=== PATIENT | female | born 1985 | race Hispanic/Latino ===

== ENCOUNTER 2018-12-13 23:18 | Emergency (ER) | payer OTHER, SELFPAY ==
[2018-12-14 00:07] LABS: Urine Blood 2+ (NEG); Urine Glucose NEGATIVE (NEG); Urine Protein NEGATIVE (NEG); Urine pH 6.5 (5.0-7.0)
[2018-12-14 00:13] LABS: Absolute Lymphocytes (CBC) 3.2 K/uL (0.7-4.9); Basophils % 0.4 % (0-1.3); Lymphocytes % 25.4 % (15.3-44.8); RBC Red Blood Cell Count 4.36 M/uL (3.86-4.86)
[2018-12-14 00:30] LABS: Potassium 3.2 mmol/L (3.5-5.1)
--- NOTE | 2018-12-14 02:53 | ER ---
Nurse's Notes [facility] Name: Ayse Lacy Age: 33 yrs Sex: Female : 1985 Arrival Date: 12/13/2018 Time: 23:25 Bed 8 Private MD: Diagnosis: Incomplete spontaneous without complication Presentation: 12/13 23:36 Presenting complaint: Patient states: vaginal bleeding. pt stated she stopped her ak1 atorvastatin 20mg after finding out she was . 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 Transition of care: patient was not received from another setting of care. Onset of symptoms is unknown. Risk Assessment: Do you want to hurt yourself or someone else? Patient reports no desire to harm self or others. Initial Sepsis Screen: Does the patient meet any 2 criteria? No. Patient's initial sepsis screen is negative. Does the patient have a suspected source of infection? No. Patient's initial sepsis screen is negative. Care prior to arrival: None. 23:36 Acuity: CHANTAL 3 ak1 23:36 Method Of Arrival: Ambulatory ak1 Triage Assessment: 23:35 General: Appears in no apparent distress. Behavior is calm, cooperative. : Reports ak1 vaginal bleeding that is pt stated she stopped her Atorvastatin and hydroxizine once she found out she was . 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 - Social history:: Smoking status: Patient/guardian denies using tobacco. - Ebola Screening: : No symptoms or risks identified at this time. Screenin:37 Abuse screen: Denies threats or abuse. Denies injuries from another. Nutritional ak1 screening: No deficits noted. Tuberculosis screening: No symptoms or risk factors identified. Fall Risk None identified. Assessment: 23:40 General: Appears in no apparent distress. comfortable, Behavior is calm, cooperative, aa1 appropriate for age. Pain: Denies pain. Neuro: Level of Consciousness is awake, alert, obeys commands, Oriented to person, place, time, situation, Moves all extremities. Full function Gait is steady. Respiratory: Airway is patent Respiratory effort is even, unlabored, Respiratory pattern is regular, symmetrical. GI: No signs and/or symptoms were reported involving the gastrointestinal system. : Reports vaginal bleeding that is spotty. EENT: No signs and/or symptoms were reported regarding the EENT system. Derm: Skin is intact, is healthy with good turgor, Skin is pink, warm \T\ dry. Musculoskeletal: Circulation, motion, and sensation intact. Capillary refill < 3 seconds. 12/14 00:29 Reassessment: Patient appears in no apparent distress at this time. Patient and/or aa1 family updated on plan of care and expected duration. Pain level reassessed. Patient is alert, oriented x 3, equal unlabored respirations, skin warm/dry/pink. Awaiting lab results. 01:30 Reassessment: Patient appears in no apparent distress at this time. Patient and/or aa1 family updated on plan of care and expected duration. Pain level reassessed. Patient is alert, oriented x 3, equal unlabored respirations, skin warm/dry/pink. Awaiting u/s. 02:40 Reassessment: Patient appears in no apparent distress at this time. Patient and/or aa1 family updated on plan of care and expected duration. Pain level reassessed. Patient is alert, oriented x 3, equal unlabored respirations, skin warm/dry/pink. Pt back from u/s. Vital Signs: 12/13 23:33 BP 155 / 116; Pulse 95; Resp 18; Temp 97.5; Pulse Ox 100% on R/A; Weight 76.2 kg (R); ak1 Height 5 ft. 1 in. (154.94 cm) (R); 12/14 00:29 BP 149 / 103; Pulse 80; Resp 16; Pulse Ox 98% on R/A; aa1 01:01 BP 134 / 93; Pulse 83; Resp 18; Pulse Ox 98% on R/A; Pain 0/10; aa1 12/13 23:33 Body Mass Index 31.74 (76.20 kg, 154.94 cm) ak1 ED Course: 12/13 23:25 Patient arrived in ED. es 23:32 Laurie Schroeder FNP-C is [facility]. kb 23:32 Evaristo Thomas MD is Attending Physician. kb 23:33 Arm band placed on Patient placed in an exam room, on a stretcher, Patient notified of ak1 wait time. 23:37 Triage completed. ak1 23:40 Patient has correct armband on for positive identification. Bed in low position. Call aa1 light in reach. Pulse ox on. NIBP on. 23:49 Raina Montes, RN is Primary Nurse. aa1 12/14 02:51 US Transvaginal Ob In Process Unspecified. EDMS 03:02 No provider procedures requiring assistance completed. IV discontinued, intact, ak1 bleeding controlled, No redness/swelling at site. Pressure dressing applied, 20g IV removed from right AC that was placed prior to this nurse taking over care. Administered Medications: No medications were administered Outcome: 02:52 Discharge ordered by MD. kb 03:03 Discharged to home ambulatory, with family. ak1 03:03 Condition: stable 03:03 Discharge instructions given to patient, Instructed on discharge instructions, follow up and referral plans. Demonstrated understanding of instructions, follow-up care. 03:16 Patient left the ED. jb4 Signatures: Dispatcher [employer] EDMT Laurie Schroeder FNP-C FNP-Raina Zapata, RN RN aa1 Isis Shirley Amber RN RN ak1 Ryne Saha, DELANEY RN jb4
--- NOTE | 2018-12-14 02:53 | EDPHYS ---
Physician Documentation [facility] Name: Ayse Lacy Age: 33 yrs Sex: Female : 1985 Arrival Date: 12/13/2018 Time: 23:25 Bed 8 Private MD: ED Physician Evaristo Thomas HPI: 12/14 00:48 This 33 yrs old Female presents to ER via Ambulatory with complaints of kb Vaginal Bleeding, + Preg <12wks. 00:48 The patient presents to the emergency department with vaginal bleeding, that is light. kb The estimated gestational age is 8 weeks. course: care: none, Leakage of Fluid: none appreciated, Ultrasound: the patient has not had an ultrasound, Risk/complications: no obvious risks or complications are appreciated. Previous pregnancies: in previous pregnancies patient has had. Associated signs and symptoms: Pertinent positives: vaginal bleeding. The patient has not experienced similar symptoms in the past. The patient has not recently seen a physician. Pt reports vaginal bleeding from [id number] on 12/12/18 and now light spotting. . 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 - Social history:: Smoking status: Patient/guardian denies using tobacco. - Ebola Screening: : No symptoms or risks identified at this time. ROS: 12/14 00:47 Constitutional: Negative for fever, chills, and weight loss, Neck: Negative for injury, kb pain, and swelling, Cardiovascular: Negative for chest pain, palpitations, and edema, Respiratory: Negative for shortness of breath, cough, wheezing, and pleuritic chest pain, Abdomen/GI: Negative for abdominal pain, nausea, vomiting, diarrhea, and constipation, Back: Negative for injury and pain, MS/Extremity: Negative for injury and deformity, Skin: Negative for injury, rash, and discoloration, Neuro: Negative for headache, weakness, numbness, tingling, and seizure. : Positive for vaginal bleeding. Exam: 00:47 Constitutional: This is a well developed, well nourished patient who is awake, alert, kb and in no acute distress. Head/Face: Normocephalic, atraumatic. ENT: Nares patent. No nasal discharge, no septal abnormalities noted. Tympanic membranes are normal and external auditory canals are clear. Oropharynx with no redness, swelling, or masses, exudates, or evidence of obstruction, uvula midline. Mucous membranes moist. Neck: Trachea midline, no thyromegaly or masses palpated, and no cervical lymphadenopathy. Supple, full range of motion without nuchal rigidity, or vertebral point tenderness. No Meningismus. Chest/axilla: Normal chest wall appearance and motion. Nontender with no deformity. No lesions are appreciated. Cardiovascular: Regular rate and rhythm with a normal S1 and S2. No gallops, murmurs, or rubs. Normal PMI, no JVD. No pulse deficits. Respiratory: Lungs have equal breath sounds bilaterally, clear to auscultation and percussion. No rales, rhonchi or wheezes noted. No increased work of breathing, no retractions or nasal flaring. Abdomen/GI: Soft, non-tender, with normal bowel sounds. No distension or tympany. No guarding or rebound. No evidence of tenderness throughout. Back: No spinal tenderness. No costovertebral tenderness. Full range of motion. Skin: Warm, dry with normal turgor. Normal color with no rashes, no lesions, and no evidence of cellulitis. MS/ Extremity: Pulses equal, no cyanosis. Neurovascular intact. Full, normal range of motion. Neuro: Awake and alert, GCS 15, oriented to person, place, time, and situation. Cranial nerves II-XII grossly intact. Motor strength 5/5 in all extremities. Sensory grossly intact. Cerebellar exam normal. Normal gait. Vital Signs: 12/13 23:33 BP 155 / 116; Pulse 95; Resp 18; Temp 97.5; Pulse Ox 100% on R/A; Weight 76.2 kg (R); ak1 Height 5 ft. 1 in. (154.94 cm) (R); 12/14 00:29 BP 149 / 103; Pulse 80; Resp 16; Pulse Ox 98% on R/A; aa1 01:01 BP 134 / 93; Pulse 83; Resp 18; Pulse Ox 98% on R/A; Pain 0/10; aa1 12/13 23:33 Body Mass Index 31.74 (76.20 kg, 154.94 cm) ak1 MDM: 12/13 23:32 Patient medically screened. 12/14 00:47 Data reviewed: vital signs, nurses notes. Data interpreted: Pulse oximetry: on room air kb is 98 %. Interpretation: normal. 02:50 Data reviewed: I have discussed the patient's presentation/case with the attending Emergency Department Physician;. Counseling: I had a detailed discussion with the patient and/or guardian regarding: the historical points, exam findings, and any diagnostic results supporting the discharge/admit diagnosis, lab results, radiology results, the need for outpatient follow up, an OB/Gyne specialist, to return to the emergency department if symptoms worsen or persist or if there are any questions or concerns that arise at home. 12/13 23:35 Order name: Quantitative Hcg; Complete Time: 01:13 kb 12/13 23:35 Order name: Abo/rh Typing; Complete Time: 00:54 kb 12/13 23:35 Order name: Basic Metabolic Panel; Complete Time: 01:13 kb 12/13 23:35 Order name: CBC with Diff; Complete Time: 00:17 kb 12/13 23:45 Order name: Urine Dipstick--Ancillary (enter results) [facility] 12/13 23:45 Order name: Urine --Ancillary (enter results); Complete Time: 00:10 wa5 12/13 23:35 Order name: Urine Test (obtain specimen); Complete Time: 23:45 kb 12/13 23:35 Order name: IV Saline Lock; Complete Time: 23:58 kb 12/13 23:35 Order name: Labs collected and sent; Complete Time: 23:58 kb 12/13 23:35 Order name: NPO; Complete Time: 23:51 kb 12/13 23:35 Order name: Urine Dipstick-Ancillary (obtain specimen); Complete Time: 23:45 kb 12/14 01:14 Order name: US Transvaginal Ob kb Administered Medications: No medications were administered Disposition: 04:35 Co-signature as Attending Physician, Evaristo Thomas MD I agree with the assessment and tw4 plan of care. Disposition: 12/14/18 02:52 Discharged to Home. Impression: Incomplete spontaneous without complication. - Condition is Stable. - Discharge Instructions: Incomplete Miscarriage. - Medication Reconciliation Form, Thank You Letter, Antibiotic Education, Prescription Opioid Use form. - Follow up: Emergency Department; When: As needed; Reason: Worsening of condition. Follow up: Private Physician; When: 2 - 3 days; Reason: Recheck today's complaints, Continuance of care, Re-evaluation by your physician. Signatures: Dispatcher [employer] EDMS Laurie Schroeder, CARRIE-C POTATO SORTER-Trisha Benavides, RN RN ak1 Ryne Saha RN RN jb4 Evaristo Thomas MD MD tw4 Corrections: (The following items were deleted from the chart) 02:49 00:47 Counseling: I had a detailed discussion with the patient and/or guardian anahi regarding: the historical points, exam findings, and any diagnostic results supporting the discharge/admit diagnosis, lab results, radiology results, the need for outpatient follow up, an OB/Gyne specialist, to return to the emergency department if symptoms worsen or persist or if there are any questions or concerns that arise at home, kb 03:16 02:52 12/14/2018 02:52 Discharged to Home. Impression: Incomplete spontaneous jb4 without complication. Condition is Stable. Forms are Medication Reconciliation Form, Thank You Letter, Antibiotic Education, Prescription Opioid Use. Follow up: Emergency Department; When: As needed; Reason: Worsening of condition. Follow up: Private Physician; When: 2 - 3 days; Reason: Recheck today's complaints, Continuance of care, Re-evaluation by your physician. kb
--- NOTE | 2018-12-16 10:05 | RAD REPORT ---
EXAM DESCRIPTION: HERBER ZACARIAS [id number] - Transvaginal OB ADDENDUM #1 THIS REPORT CONTAINS FINDINGS THAT MAY BE CRITICAL TO PATIENT CARE: The findings were verbally discussed via telephone conference with Dr. Evaristo Thomas by Dr. Iveth Cardoza on 12/14/2018 3:47 AM CDT .The results were acknowledged and understood. Electronically signed by: Kimberly Cardoza MD 12/14/2018 3:47 AM CDT End of Addendum EXAM DESCRIPTION: US , Transvaginal CLINICAL HISTORY: The patient is 33 years old and is Female; Abd cramping, ;Vaginal bleeding TECHNIQUE: Real-time transvaginal obstetrical ultrasound of the maternal pelvis and a first trimeste r with image documentation. Transvaginal imaging was used for better evaluation of the fe tus and adnexa. COMPARISON: No relevant prior studies available. FINDINGS: GESTATION: A single intrauterine gestational sac and yolk sac are present. A pole with a crown-rump length of 1.2 cm correlating to 7 weeks 2 days is present. Yolk sac is enlarged. No heart tones are detected. PLACENTA/AMNIOTIC FLUID: Cannot be adequately evaluated due to the early gestational age. UTERUS/CERVIX: Trace amount of fluid is present within the lower uterine segment/cervical region . No myometrial mass. OVARIES: Unremarkable. No mass. FREE FLUID: No free fluid. IMPRESSION: Single IUP at 7 weeks 2 days by CRL. No heart tones are detected. Findings suggest a failed first trimester . Electronically signed by: Kimberly Cardoza MD 12/14/2018 3:32 AM CDT Due to temporary technical issues with the PACS/Fluency reporting system, reports are being signed by the in house radiologist as a courtesy to ensure prompt reporting. The interpreting radiologist is f ully responsible for the content of the report.
== END 2018-12-14 03:16 | disposition home or self-care (01) ==
LOC: ER 23:18
DX: O03.4 Incomplete spontaneous abortion without complication (principal); I10 Essential (primary) hypertension; E78.00 Pure hypercholesterolemia, unspecified
CPT/HCPCS: 36415; 76817; 80048; 81003; 81025; 84702; 85025; 86900; 86901; 99283

== ENCOUNTER 2018-12-15 02:12 | Day surgery (SDC) | payer OTHER ==
[2018-12-15 02:41] LABS: Absolute Lymphocytes (CBC) 3.1 K/uL (0.7-4.9); Basophils % 0.6 % (0-1.3); Hematocrit 37.5 % (36.0-45.0); Lymphocytes % 24.9 % (15.3-44.8); MPV 7.8 fL (7.6-11.3); RBC Red Blood Cell Count 3.98 M/uL (3.86-4.86)
[2018-12-15 02:49] LABS: BUN Blood Urea Nitrogen 7 mg/dL (7-18); Bicarbonate 23 mmol/L (21-32); Glucose Level 120 mg/dL (74-106); Potassium 3.1 mmol/L (3.5-5.1); Sodium Level 139 mmol/L (136-145)
[2018-12-15] MEDS ORDERED: METHYLERGONOVINE 0.2MG/ML AMP IM ONE ×2 (02:55→04:29)
[2018-12-15] MEDS ORDERED: Ringers Lactate 1,000 ML IV ONE (03:31)
--- NOTE | 2018-12-15 03:42 | EDPHYS ---
Physician Documentation [facility] Name: Ayse Lacy Age: 33 yrs Sex: Female : 1985 Arrival Date: 12/15/2018 Time: 02:15 Bed 6 Private MD: ED Physician Evaristo Thomas HPI: 12/15 03:37 This 33 yrs old Female presents to ER via EMS with complaints of Vaginal tw4 Bleeding. 03:37 The patient presents with vaginal bleeding that is. Onset: The symptoms/episode tw4 began/occurred just prior to arrival, today. Modifying factors: The symptoms are alleviated by nothing, the symptoms are aggravated by nothing. Associated signs and symptoms: The patient has no apparent associated signs or symptoms. Severity of symptoms: At their worst the symptoms were moderate, in the emergency department the symptoms. The patient has not experienced similar symptoms in the past. 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 - Social history:: Smoking status: Patient/guardian denies using tobacco. - Ebola Screening: : No symptoms or risks identified at this time. ROS: 03:37 Positive for vaginal bleeding. tw4 03:37 Constitutional: Negative for fever, chills, and weight loss, Eyes: Negative for injury, pain, redness, and discharge, Cardiovascular: Negative for chest pain, palpitations, and edema, Respiratory: Negative for shortness of breath, cough, wheezing, and pleuritic chest pain, Abdomen/GI: Negative for abdominal pain, nausea, vomiting, diarrhea, and constipation, Back: Negative for injury and pain, MS/Extremity: Negative for injury and deformity, Skin: Negative for injury, rash, and discoloration, Neuro: Negative for headache, weakness, numbness, tingling, and seizure. Exam: 03:37 Constitutional: This is a well developed, well nourished patient who is awake, alert, tw4 and in no acute distress. Head/Face: Normocephalic, atraumatic. Chest/axilla: Normal chest wall appearance and motion. Nontender with no deformity. No lesions are appreciated. Cardiovascular: Regular rate and rhythm with a normal S1 and S2. No gallops, murmurs, or rubs. Normal PMI, no JVD. No pulse deficits. Respiratory: Lungs have equal breath sounds bilaterally, clear to auscultation and percussion. No rales, rhonchi or wheezes noted. No increased work of breathing, no retractions or nasal flaring. Abdomen/GI: Soft, non-tender, with normal bowel sounds. No distension or tympany. No guarding or rebound. No evidence of tenderness throughout. 03:37 MS/ Extremity: Pulses equal, no cyanosis. Neurovascular intact. Full, normal range of motion. Neuro: Awake and alert, GCS 15, oriented to person, place, time, and situation. Cranial nerves II-XII grossly intact. Motor strength 5/5 in all extremities. Sensory grossly intact. Cerebellar exam normal. Normal gait. 03:37 : Pelvic Exam: Speculum exam: severe bleeding, bimanual exam reveals normal findings. Vital Signs: 02:15 BP 158 / 105; Pulse 113; Resp 18; Temp 98; Pulse Ox 98% on R/A; Weight 72.57 kg (R); ak1 Height 5 ft. 1 in. (154.94 cm) (R); Pain 5/10; 02:56 BP 133 / 101; Pulse 98; Resp 18; Pulse Ox 99% on R/A; ak1 04:00 BP 146 / 104; Pulse 80; Resp 18; Pulse Ox 99% on R/A; ea 02:15 Body Mass Index 30.23 (72.57 kg, 154.94 cm) ak1 MDM: 02:15 Patient medically screened. tw4 03:37 Differential diagnosis: molar preganancy, Neoplasm. Data reviewed: vital signs, nurses tw4 notes. Data interpreted: Pulse oximetry: Interpretation: normal. Counseling: I had a detailed discussion with the patient and/or guardian regarding: the historical points, exam findings, and any diagnostic results supporting the discharge/admit diagnosis. Special discussion: I discussed with the patient/guardian in detail that at this point there is no indication for admission to the hospital. It is understood, however, that if the symptoms persist or worsen the patient needs to return immediately for re-evaluation. 12/15 02:15 Order name: Basic Metabolic Panel tw4 12/15 02:15 Order name: CBC with Diff; Complete Time: 02:51 tw4 12/15 02:45 Order name: US OB Limited tw4 12/15 02:15 Order name: IV Saline Lock; Complete Time: 02:20 tw4 12/15 02:15 Order name: Labs collected and sent; Complete Time: 02:20 tw4 12/15 02:15 Order name: NPO; Complete Time: 02:20 tw4 12/15 02:15 Order name: Pelvic Exam Setup; Complete Time: 02:22 tw4 Administered Medications: 03:40 Drug: Lactated Ringers Solution 1000 ml Route: IV; Rate: 150 ml/hr; Site: right ea antecubital; 04:10 Follow up: Response: No adverse reaction; IV Status: Infusion continued upon admission ea 04:01 CANCELLED (Other Intervention Used): Stadol 1 mg IVP once ea 04:02 Drug: Zofran 4 mg Route: IVP; Site: right antecubital; ea 04:10 Follow up: Response: No adverse reaction ea 04:02 Drug: TORadol 30 mg Route: IVP; Site: right antecubital; ea 04:10 Follow up: Response: No adverse reaction ea 04:06 Not Given (verbal order to cancel by Dr. Thomas): METHERgine 0.2 mg IM once ak1 Disposition: 12/15/18 03:40 Hospitalization ordered by Dennis Marks for Inpatient Admission. Preliminary diagnosis is Other abnormal products of conception. - [facility]. - Status is Inpatient Admission. ea - Condition is Fair. - Problem is new. - Symptoms have improved. UTI on Admission? No Signatures: Dispatcher [employer] EDMS Linda Sommer RN RN Trisha Smith RN RN ak1 Aneta Tamayo RN Evaristo Garcia ea, MD MD tw4 Corrections: (The following items were deleted from the chart) 03:58 03:40 Hospitalization Ordered by Dennis Marks MD for Inpatient Admission. laci Preliminary diagnosis is Other abnormal products of conception. Bed [facility]. Status is Inpatient Admission. Condition is Fair. Problem is new. Symptoms have improved. UTI on Admission? No. tw4 04:01 03:50 Stadol 1 mg IVP once ordered. ea ea 04:01 03:56 Stadol 1 mg IVP once ordered. ea ea 04:28 03:58 12/15/2018 03:40 Hospitalization Ordered by Dennis Marks MD for Inpatient ea Admission. Preliminary diagnosis is Other abnormal products of conception. Bed [facility]. Status is Inpatient Admission. Condition is Fair. Problem is new. Symptoms have improved. UTI on Admission? No. mw
--- NOTE | 2018-12-15 03:42 | ER ---
Nurse's Notes [facility] Name: Ayse Lacy Age: 33 yrs Sex: Female : 1985 Arrival Date: 12/15/2018 Time: 02:15 Bed 6 Private MD: Diagnosis: Other abnormal products of conception Presentation: 12/15 02:16 Presenting complaint: Patient states: increased vaginal bleeding started at 0150. pt ak1 seen in ER last night for demise. Transition of care: patient was not received from another setting of care. Onset of symptoms was December 15, 2018. Risk Assessment: Do you want to hurt yourself or someone else? Patient reports no desire to harm self or others. Initial Sepsis Screen: Does the patient meet any 2 criteria? No. Patient's initial sepsis screen is negative. Does the patient have a suspected source of infection? No. Patient's initial sepsis screen is negative. Care prior to arrival: None. 02:16 Method Of Arrival: EMS: [facility] ak1 02:16 Acuity: CHANTAL 3 ak1 Triage Assessment: 02:17 General: Appears uncomfortable, Behavior is calm, cooperative. Pain: Complains of pain ak1 in pelvis. EENT: No signs and/or symptoms were reported regarding the EENT system. 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 Cardiovascular: No deficits noted. Respiratory: Airway is patent Respiratory effort is even, unlabored, Respiratory pattern is regular, symmetrical. GI: No deficits noted. : Reports vaginal bleeding that is bright red, heavy flow. Derm: No signs and/or symptoms reported regarding the dermatologic system. Musculoskeletal: No signs and/or symptoms reported regarding the musculoskeletal system. COLUMN PRECASTER: 02:19 3, 0, Living 2, LMP 09/30/2018, Verified, EDC 07/07/2019, ak1 Gestational age from LMP: 10 weeks 6 days Historical: - Allergies: 02:17 No Known Allergies; ak1 - Home Meds: 02:17 atorvastatin 20 mg Oral tab 1 tab once daily [Active]; Nifedipine ER Oral 60 mg daily ak1 [Active]; - PMHx: 02:17 High Cholesterol; Hypertension; ak1 - PSHx: 02:17 ; ak1 - Immunization history:: Adult Immunizations unknown. - Social history:: Smoking status: Patient/guardian denies using tobacco. - Ebola Screening: : No symptoms or risks identified at this time. Screenin:18 Abuse screen: Denies threats or abuse. Denies injuries from another. Nutritional ak1 screening: No deficits noted. Tuberculosis screening: No symptoms or risk factors identified. Fall Risk None identified. Assessment: 02:54 Reassessment: Patient appears in no apparent distress at this time. No changes from ak1 previously documented assessment. Patient is alert, oriented x 3, equal unlabored respirations, skin warm/dry/pink. 02:55 Reassessment: pt given wipes, sanitary pad and L\T\D panties to clean and change. pt bed ak1 linen changed due to blood. pt informed of wait for US for possible retention of more POC. pt denies pain at this time. 03:02 Reassessment: verbal order from Dr. Thomas to hold Methergine until COLUMN PRECASTER non destructive testing scientist ak comes to assess pt. 03:50 Reassessment: Dr. Marks at bedside updating pt on plan of care. Pt verbalized the ea understanding of need for D\T\C, Consent signed by patient. 04:05 Reassessment: Pt complaining of pain Dr. Marks at bedside, verbal orders obtained ea for pain medication, medication administered. Pt tolerated well. 04:22 Reassessment: Patient is alert, oriented x 3, equal unlabored respirations, skin ea warm/dry/pink. Bedside report given to OR nurse. Pt left ED to OR via stretcher per OR nurse, accompanied by family member. Pt tolerating well. Vital Signs: 02:15 BP 158 / 105; Pulse 113; Resp 18; Temp 98; Pulse Ox 98% on R/A; Weight 72.57 kg (R); ak1 Height 5 ft. 1 in. (154.94 cm) (R); Pain 5/10; 02:56 BP 133 / 101; Pulse 98; Resp 18; Pulse Ox 99% on R/A; ak1 04:00 BP 146 / 104; Pulse 80; Resp 18; Pulse Ox 99% on R/A; ea 02:15 Body Mass Index 30.23 (72.57 kg, 154.94 cm) ak1 ED Course: 02:15 Patient arrived in ED. ea 02:15 Evaristo Thomas MD is Attending Physician. tw4 02:15 Trisha Talbot RN is Primary Nurse. ak1 02:15 Arm band placed on Patient placed in an exam room, on a stretcher, on pulse oximetry, ak1 Patient notified of wait time. 02:17 Triage completed. ak1 02:18 Patient has correct armband on for positive identification. Bed in low position. Call ak1 light in reach. Side rails up X2. Adult w/ patient. Pulse ox on. NIBP on. 02:22 Inserted saline lock: 20 gauge in right antecubital area, using aseptic technique. mt Blood collected. 02:55 Assist provider with pelvic exam: Set up pelvic tray. Performed by Evaristo Thomas MD ak1 POC walked to lab. Patient tolerated well. 03:39 Dennis Marks MD is Hospitalizing Provider. tw4 04:22 Patient admitted, IV remains in place. ea Administered Medications: 03:40 Drug: Lactated Ringers Solution 1000 ml Route: IV; Rate: 150 ml/hr; Site: right ea antecubital; 04:10 Follow up: Response: No adverse reaction; IV Status: Infusion continued upon admission ea 04:01 CANCELLED (Other Intervention Used): Stadol 1 mg IVP once ea 04:02 Drug: Zofran 4 mg Route: IVP; Site: right antecubital; ea 04:10 Follow up: Response: No adverse reaction ea 04:02 Drug: TORadol 30 mg Route: IVP; Site: right antecubital; ea 04:10 Follow up: Response: No adverse reaction ea 04:06 Not Given (verbal order to cancel by Dr. Thomas): METHERgine 0.2 mg IM once ak1 Outcome: 03:40 Decision to Hospitalize by Provider. tw4 03:50 Admitted to OR accompanied by nurse, family with patient, via stretcher, with chart, ea Report called to Bedside report given to OR nurse 03:50 Instructed on the need for admit. 04:20 Condition: stable ea 04:28 Patient left the ED. ea Signatures: Trisha Talbot RN RN ak Hoffman, Sri mt Tamayo, Aneta, RN RN ea Novelty, Evaristo, MD MD tw4
[2018-12-15] MEDS ORDERED: ONDANSETRON 4 MG/2 ML VIAL ONE ×2 (03:56→04:29)
[2018-12-15] MEDS ORDERED: KETOROLAC 30 MG/ML INJ ONE (03:57)
--- NOTE | 2018-12-15 04:09 | PREOPHP ---
Date of Admission: 12/15/2018 History Of Present Illness: Ms. Lacy is a 33-year-old, , female, 3, para 2 -0-0-2, approximately 10 weeks gestation. She presents to the emergency room for her second visit wi th increased bleeding and clamping. She had been seen previously approximately 48 hours previously w ith a small amount of bleeding. Intrauterine demise was documented at that time on ultrasound examination. She started bleeding and cramping heavier and presents here. Past Medical History: Includes 2 prior sections for nonreassuring heart rate on her f irst 1, repeat the second 1. She has no other hospitalizations, accidents, illnesses, or injuries. Medications: She is on no medications other than blood pressure medication along with cholesterol me dication until she found out that she was . Allergies: SHE HAS NO KNOWN ALLERGIES. Social History: She does not smoke. Family History: Significant for hypertension and diabetes, otherwise noncontributory. Review of Systems: She reports no recent cough, cold, fever, or chills. She has had some recent nausea with the pregnan cy. She denies any breast knots or lumps. She denies any bowel or bladder issues. Physical Examination: GENERAL: Reveals a female in mild discomfort. NECK: Supple without adenopathy or thyromegaly. LUNGS: Clear. CARDIAC: Regular rate and rhythm without murmurs. BREASTS: Not examined. ABDOMEN: Without organomegaly or splenomegaly. PELVIC: Vaginal vault filled with blood clots, could not be cleared easily with continued bleeding. Bimanual, again just feel blood clots. EXTREMITIES: No cyanosis, clubbing, or edema. Impression: Inevitable with heavy bleeding. Plan: We recommend patient undergo D and C for removal of products of conception and control of blee ding. Risks and benefits are discussed. She has signed operative permit in our presence discharge. CALISTA/HARDIK Voice ID: [id number]
[2018-12-15] MEDS ORDERED: OXYTOCIN 10 UNIT/ML ML IV ONE (04:27)
[2018-12-15] MEDS ORDERED: dexAMETHasone 10 MG/ML VIAL ONE (04:28)
[2018-12-15] MEDS ORDERED: FENTANYL CITR 100 MCG/2 ML ONE (04:28)
[2018-12-15] MEDS ORDERED: SILVER NITRATE 1 APPL TOP ONE (04:28)
[2018-12-15] MEDS ORDERED: LIDOCAINE 2% MPF 5 ML VIAL ONE (04:28)
[2018-12-15] MEDS ORDERED: PROPOFOL 200 MG/20 ML VIAL IV ONE (04:28)
[2018-12-15] MEDS ORDERED: MIDAZOLAM HCL 2 MG/2 ML INJ ONE (04:28)
[2018-12-15] MEDS ORDERED: SUCCINYLCHOLINE 20 MG/ML (10 ML) IV ONE (04:37)
[2018-12-15] MEDS ORDERED: NA CHLORIDE 0.9% 250 ML ONE (04:42)
[2018-12-15] MEDS ORDERED: DOXYCYCLINE IVPB ONE (04:42)
[2018-12-15] MEDS ORDERED: DOXYCYCLINE HYCLATE 100MG INJ ONE (04:42)
[2018-12-15] MEDS ORDERED: NA CHLORIDE 0.9% IVPB ONE (04:42)
[2018-12-15] MEDS ORDERED: PROMETHAZINE 25 MG/ML VIAL IV PRN (05:13)
--- NOTE | 2018-12-15 09:21 | P.BOP ---
Preoperative diagnosis: 10 week incomplete Postoperative diagnosis: same Primary procedure: Curretage of uterine endometrium Estimated blood loss: 10ml, proceedure Specimen: POC Anesthesia: General Complications: None Transferred to: Recovery Room Condition: Good
--- NOTE | 2018-12-15 20:20 | OP ---
Surgeon: Dennis Marks MD Preoperative Diagnosis: A 10-week intrauterine demise with incomplete . Procedure: Curettage of the endometrium for completion of . Postoperative Diagnosis: A 10-week intrauterine demise with incomplete . Anesthesia: Dr. Jonathan Oakley. Description Of Procedure: After satisfactory level of general anesthesia was obtained, the patient w as prepped and draped in the usual fashion in high leg holders. A weighted speculum was placed in po sterior vagina. Cervix was visualized and grasped with a single-tooth tenaculum. It was dilated suf ficiently to accept a #10 suction curette, productive of moderate amount of tissue. This was followe d by sharp curettage with Dheeraj curette, the suction curettage and the Dheeraj curettage again with n o further tissue noted. The patient was awakened and taken to recovery room in satisfactory conditio n. Estimated blood loss from the procedure was approximately 10 mL, she had a great deal of clot in the vagina at the beginning of the procedure. CALISTA/HARDIK Voice ID: [id number] Report ID: [id number]
--- NOTE | 2018-12-15 20:29 | DS ---
Date of Discharge: 12/15/2018 Discharge Diagnosis: A 10+ week intrauterine demise with incomplete . Hospital Course: She presented to the emergency room second visit approximately 48 hours with heavy vaginal bleeding. She was taken for D and C. Bleeding well controlled. She was dismissed to be seen back in my office in approximately 1 week with usual post D and C activity restrictions. Lab work included an admission hemoglobin and hematocrit of 13.0 and 37.5. She was dismissed with prescription for Cytotec 100 mcg 1 p.o. q.6 hours #4 tablets. She is rh positive blood type.. CALISTA/HARDIK Voice ID: [id number] Report ID: [id number] DAY
== END 2018-12-15 10:30 | disposition home or self-care (01) ==
LOC: ER 02:12 → OR 04:22 → 2ND-WC 05:10 → OR 10:30
PROVIDERS: ATTEND Specialist
PROC: 10D17ZZ Extraction of Products of Conception, Retained, Via Natural or Artificial Opening (ICD-10-PCS; principal; 2018-12-15 04:00)
DX: O03.4 Incomplete spontaneous abortion without complication (principal); I10 Essential (primary) hypertension
CPT/HCPCS: 85025; 80048; 36415; 88305; 96375; 96374; 99285; 59812; J2704; J2210 ×2; J2590; J0330; J2250; J3010; J1100; J2405 ×2

== ENCOUNTER 2021-11-19 11:21 | Emergency (ER) | payer SELFPAY ==
--- OUTSIDE RECORDS SUMMARY | 2021-11-19 11:25 | XMS REPORT | Continuity of Care Document ---
:1985 Author Organization [facility] t Address [address] [place] [address] Dr. Beckham [address] [place] [address] Care Team Providers Name Role Phone Unavailable Unavailable Unavailable Problems This patient has no known problems. Allergies, Adverse Reactions, Alerts This patient has no known allergies or adverse reactions. Medications This patient has no known medications. Procedures This patient has no known procedures. Results Test Description Test Time Test Comments Results Result Comments Source VITAMIN D, 25 OH 2021-10-18 05:02:19 Test Item Value Reference Range Interpretation Comme nts VITAMIN D, 25 OH (test code 21 NG/ML SEE BELOW L NOTE: 25-HYDROXYVITAMIN D ASSAY = 4958) INCLUDES 25-HYD ROXYVITAMIN D2 AND D3. METHOD OLOGY IS CHEMILUMINESCEN T IMMUNOASSAY. I NTERPRETIVE RANGES PEDIATRIC (<17 YEARS) . . . . . . . . . . . NG/ ML 20-100ADULT: I NSUFFICIENT . . . . . . . . . . . . . . NG/ML <20 SUBOPTI MAL . . . . . . . . . . . . . . . NG/ ML 20-29 OPTIMAL . . . . . . . . . . . . . . . . . NG/ML 30-100 UNLESS OTHERWIS E INDICATED, ALL TESTING PERFORM ED ATCLINICAL PATHOLOGY [employer] [address] [place] [id number] LABORATORY DIRE CTOR: MIRIAM HERNANDEZ M.D. CLIA NUMBER [id number] [place]. [id number] VITAMIN [id number] 02:31:01 Test Item Value Reference Range Interpretation Comments VITAMIN B-12 (test code = 2840) 348 PG/ML 200-950 LIPID [id number] 23:49:04 Test Item Value Reference Range Interpretation Comments CHOLESTEROL (test 193 MG/DL <200 code = 2210) TRIGLYCERIDES (test 681 MG/DL <150 H code = 2232) HDL CHOLESTEROL 40 MG/DL >39 (test code = 2220) CALC LDL CHOL (test (NOTE) MG/DL <100 UNABLE T O CALCULATE A code = 2237) VALID LDL BRIDGER STEROL WHEN THE TRIGLYCERIDEVAL UE IS GREATER THAN 40 0 MG/DL.UNABLE TO CALCULATE A JUAN J ID LDL CHOLESTEROL WHE N THE TRIGLYCERIDEVAL UE IS GREATER THAN 40 0 MG/DL. NOTE: CALCULATE D LDL IS BASED ON DIANE -VILLALTA METHOD WHICHINC LUDES ADJUSTABLE TRIGLYCERIDE:VL DL CHOLESTEROL RAT IO.THIS FACTOR VARIES B Y MEASURED TRIGLY CERIDE AND NON-HDLCHOL ESTEROL CONCENTRATIONS WITH INCREASED CALCU LATED LDL SEENIN HIGH ER TRIGLYCERIDE OR LOWER NON-HDL SPECIME NS. FOR MOREINFORMATION , SEE CLIENT ANNOUNCE MENT AT [email or web address] RATIO LDL/HDL (NOTE) RATIO <3.22 (test code = 2238) UNABLE TO CALCULATE COMPREHENSIVE METABOLIC [id number] 23:49:04 Test Item Value Reference Range Interpretation Comments GLUCOSE (test code = 86 MG/DL 70-99 2216) BUN (test code = 11 MG/DL 6-20 2207) CREATININE (test 0.73 MG/DL 0.60-1.30 code = 2214) eGFR (2020 CKD-EPI) 108 >60 (test code = 58410) ML/MIN/1.73 CALC BUN/CREAT (test 15 RATIO 6-28 code = 2235) SODIUM (test code = 138 MEQ/L 275-637 8852) POTASSIUM (test code 3.9 MEQ/L 3.5-5.4 = 2227) CHLORIDE (test code 98 MEQ/L 95-107 = 2215) CARBON DIOXIDE (test 23 MEQ/L 19-31 code = 2206) CALCIUM (test code = 9.1 MG/DL 8.5-10.5 2208) PROTEIN, TOTAL (test 7.3 G/DL 6.1-8.3 code = 222) ALBUMIN (test code = 4.2 G/DL 3.5-5.2 2200) CALC GLOBULIN (test 3.1 G/DL 1.9-3.7 code = 2240) CALC A/G RATIO (test 1.4 RATIO 1.0-2.6 code = 2234) BILIRUBIN, TOTAL 0.2 MG/DL See_Comment [Automated message] (test code = 2207) The syste m which generated this result transmit ha reference range : <=1.2. The refe rence range was not u sed to interpret th is result as normal/abnormal . ALKALINE PHOSPHATASE 73 U/L 40-112 (test code = 2203) AST (test code = 17 U/L 9-40 8) ALT (test code = 13 U/L 5-40 2218) HEMOGLOBIN [id number] 04:11:01 Test Item Value Reference Range Interpretation Comments HEMOGLOBIN A1c (test code = 03651) 5.5 % 4.2-5.6 CBC W/AUTO DIFF WITH [id number] 04:00:53 Test Item Value Reference Range Interpretation Comments WBC (test code = 10.4 K/UL 3.5-11.0 1001) RBC (test code = 4.22 M/UL 3.80-5.40 1002) HEMOGLOBIN (test code 13.7 G/DL 11.5-15.5 = 1003) HEMATOCRIT (test code 38.9 % 34.0-45.0 = 1004) MCV (test code = 92.2 fL 80.0-99.0 1005) MCH (test code = 32.5 PG 25.0-33.0 1006) MCHC (test code = 35.2 G/DL 31.0-36.0 1007) RDW (test code = 13.2 % 11.5-15.0 1038) NEUTROPHILS (test 65.8 % code = 1008) LYMPHOCYTES (test 23.7 % code = 1010) MONOCYTES (test code 4.9 % = 1011) EOSINOPHILS (test 4.6 % code = 1012) BASOPHILS (test code 0.5 % = 1013) IMMATURE GRANULOCYTES 0.5 % (test code = 1036) NUCLEATED RBCS (test 0.0 /100 See_Comment [Autom ated code = 1065) WBC'S message] The sy stem which generated this result transmitted reference range : 0.0. The refere nce range was not u sed to interpret th is result as normal/abnormal . PLATELET COUNT (test 287 K/UL 130-400 code = 1015) ABSOLUTE NEUTROPHILS 6.85 K/UL 1.50-7.50 (test code = 1066) ABSOLUTE LYMPHOCYTES 2.47 K/UL 1.00-4.00 (test code = 1067) ABSOLUTE MONOCYTES 0.51 K/UL 0.20-1.00 (test code = 1068) ABSOLUTE EOSINOPHILS 0.48 K/UL 0.00-0.50 (test code = 1040) ABSOLUTE BASOPHILS 0.05 K/UL 0.00-0.20 (test code = 1069) ABS IMMATURE 0.05 K/UL 0.00-0.10 GRANULOCYTES (test code = 1020) ABS NUCLEATED RBCS 0.00 K/UL 0.00-0.11 (test code = 50198)
[2021-11-19] MEDS ORDERED: ASPIRIN 81 MG CHEWABLE TABLET ONE (11:56)
[2021-11-19 11:59] LABS: Absolute Lymphocytes (CBC) 2.2 K/uL (0.7-4.9); Hematocrit 41.4 % (36.0-45.0); Lymphocytes % 20.2 % (15.3-44.8); MCV 92.7 fL (80-100); MPV 8.1 fL (7.6-11.3); RBC Red Blood Cell Count 4.47 M/uL (3.86-4.86)
--- NOTE | 2021-11-19 12:14 | RAD REPORT ---
EXAM DESCRIPTION: CT - Head Brain Wo Cont - 11/19/2021 11:58 am CLINICAL HISTORY: HTN, numbness COMPARISON: No comparisons TECHNIQUE: All CT scans are performed using dose optimization technique as appropriate and may inclu de automated exposure control or mA/KV adjustment according to patient size. FINDINGS: No intracranial hemorrhage, hydrocephalus or extra-axial fluid collection.No areas of brai n edema or evidence of midline shift. The paranasal sinuses and mastoids are clear. The calvarium is intact. IMPRESSION: No acute intracranial abnormality.
--- NOTE | 2021-11-19 12:21 | RAD REPORT ---
EXAM DESCRIPTION: RAD - Chest Single View - 11/19/2021 12:14 pm CLINICAL HISTORY: CHEST PAIN COMPARISON: No comparisons FINDINGS: Lines: None. Lungs: No evidence of edema or pneumonia. Pleural: No significant pleural effusions or pneumothorax. Cardiac: The heart size is within normal limits. Bones: No acute fractures. Other: IMPRESSION: No acute cardiopulmonary disease.
[2021-11-19 12:24] LABS: BUN Blood Urea Nitrogen 8 mg/dL (7-18); Bicarbonate 26 mmol/L (21-32); Glomerular Filtration Rate 97 ml/min (=/>90); Glucose Level 104 mg/dL (74-106); Magnesium 2.1 mg/dL (1.8-2.4); Sodium Level 135 mmol/L (136-145); Troponin High Sensitivity < 3.0 pg/mL (<58.9)
[2021-11-19 12:25] LABS: Potassium 2.9 mmol/L (3.5-5.1)
[2021-11-19] MEDS ORDERED: POTASSIUM CL SA 10 MEQ TAB PO ONE (13:14)
--- NOTE | 2021-11-19 13:33 | ER ---
Nurse's Notes [facility] Name: Ayse Lacy Age: 36 yrs Sex: Female : 1985 Arrival Date: 11/19/2021 Time: 11:24 Bed 6 Private MD: Diagnosis: Hypokalemia;Essential (primary) hypertension Presentation: 11/19 11:32 Chief complaint: Patient states: Sunday BP was 186 systolic, last night 165 systolic, vg1 and this morning 146 systolic. Stated blurred vision, h/a, and "whole body" numbness/tingling. Also stated palpitations. Coronavirus screen: Vaccine status: Patient reports receiving the 2nd dose of the covid vaccine. Client denies travel out of the [place] in the last 14 days. Ebola Screen: Patient denies exposure to infectious person. Patient denies travel to an Ebola-affected area in the 21 days before illness onset. Initial Sepsis Screen: Does the patient meet any 2 criteria? No. Patient's initial sepsis screen is negative. Does the patient have a suspected source of infection? No. Patient's initial sepsis screen is negative. Risk Assessment: Do you want to hurt yourself or someone else? Patient reports no desire to harm self or others. Onset of symptoms was November 15, 2021. 11:32 Method Of Arrival: Ambulatory vg1 11:32 Acuity: CHANTAL 3 vg1 Triage Assessment: 11:35 General: Appears in no apparent distress. uncomfortable, Behavior is anxious. Pain: vg1 Denies pain. Neuro: Level of Consciousness is awake, alert, obeys commands, Oriented to person, place, time, situation, Can Tender are equal bilaterally Moves all extremities. Gait is steady, Speech is normal, Facial symmetry appears normal. Cardiovascular: Denies chest pain. SUPERVISOR BAKING: 11:35 LMP 11/11/2021 vg1 Historical: - Allergies: 11:35 No Known Allergies; vg1 - Home Meds: 11:35 Lisinopril Oral [Active]; hydrochlorothiazide Oral [Active]; atorvastatin 20 mg Oral vg1 tab 1 tab once daily [Active]; Nifedipine ER Oral 60 mg daily [Active]; - PMHx: 11:35 High Cholesterol; Hypertension; vg1 - PSHx: 11:35 section; vg1 - Immunization history:: Client reports receiving the 2nd dose of the Covid vaccine. - Social history:: Smoking status: Patient denies any tobacco usage or history of. Screenin:45 Abuse screen: Denies threats or abuse. Denies injuries from another. Nutritional bp screening: No deficits noted. Tuberculosis screening: No symptoms or risk factors identified. Fall Risk None identified. Assessment: 11:45 General: SEE TRIAGE NOTE. bp 12:29 Reassessment: No changes from previously documented assessment. Patient and/or family bp updated on plan of care and expected duration. Pain level reassessed. 13:57 Reassessment: PT D/C HOME AMBULATORY WITH FAMILY, DX WITH HYPOKALEMIA. bp Vital Signs: 11:32 BP 148 / 108; Pulse 95; Resp 16; Temp 98.2; Pulse Ox 100% on R/A; vg1 12:29 BP 123 / 95; Pulse 85; Resp 16; Pulse Ox 97% ; bp 13:57 BP 120 / 85; Pulse 79; Resp 16; Pulse Ox 97% ; bp ED Course: 11:24 Patient arrived in ED. mr 11:28 Janis Sandy is Attending Physician. sd2 11:35 Triage completed. vg1 11:35 Arm band placed on. vg1 11:38 Leonard Kumar, RN is Primary Nurse. bp 11:45 Patient has correct armband on for positive identification. Bed in low position. Call bp light in reach. Side rails up X2. Adult w/ patient. 11:45 Inserted saline lock: 20 gauge in right forearm, using aseptic technique. Blood bp collected. 12:00 CT Head Brain wo Cont In Process Unspecified. EDMS 12:16 XRAY Chest (1 view) In Process Unspecified. EDMS 12:25 Notified ED physician of a critical lab result(s). Potassium 2.9. jl7 13:57 No provider procedures requiring assistance completed. IV discontinued, intact, bp bleeding controlled, No redness/swelling at site. Pressure dressing applied. Administered Medications: 11:51 Drug: Aspirin Chewable Tablet 324 mg Route: PO; bp 12:07 Follow up: Response: No adverse reaction bp 13:08 Drug: Potassium Chloride 40 mEq Route: PO; bp 13:39 Follow up: Response: No adverse reaction bp Medication: 11:45 VIS not applicable for this client. bp Outcome: 13:32 Discharge ordered by MD. [email or web address] 13:57 Discharged to home ambulatory, with family. bp 13:57 Condition: stable 13:57 Discharge instructions given to patient, Instructed on discharge instructions, follow up and referral plans. medication usage, Demonstrated understanding of instructions, follow-up care, medications, Prescriptions given X 1. 13:59 Patient left the ED. bp Signatures: Dispatcher [employer] EDWI Pepe Hina Ifrah Salinas RN RN [id number] Leonard Kumar RN RN Noreen Campbell RN RN vg1 Janis Sandy2
--- NOTE | 2021-11-19 13:33 | EDPHYS ---
Physician Documentation [facility] Name: Ayse Lacy Age: 36 yrs Sex: Female : 1985 Arrival Date: 11/19/2021 Time: 11:24 Bed 6 Private MD: ED Physician Janis Sandy HPI: 11/19 11:39 This 36 yrs old Female presents to ER via Ambulatory with complaints of High sd2 Blood Pressure. 11:39 36 yo F with a history of HTN currently on Lisinopril/HCTZ presents with CC of HTN at sd2 home. Reports SBP as high as 160s at home over the past few days. Pt reports associated anxiety and palpitations regarding this with full body numbness and tingling. Has had some associated chest pressure. Denies SOB, NAVARRO, n/v/d. Has been compliant with medications. No prior cardiac history. Has referral from PCP to see Cardiology for her palpitations but has not scheduled yet. Was seen at virtual visit today and referred to ED due to her chest pressure.. AUTHOR: 11:35 LMP 11/11/2021 vg1 Historical: - Allergies: 11:35 No Known Allergies; vg1 - Home Meds: 11:35 Lisinopril Oral [Active]; hydrochlorothiazide Oral [Active]; atorvastatin 20 mg Oral vg1 tab 1 tab once daily [Active]; Nifedipine ER Oral 60 mg daily [Active]; - PMHx: 11:35 High Cholesterol; Hypertension; vg1 - PSHx: 11:35 section; vg1 - Immunization history:: Client reports receiving the 2nd dose of the Covid vaccine. - Social history:: Smoking status: Patient denies any tobacco usage or history of. ROS: 11:41 Constitutional: Negative for fever, chills, and weight loss, Eyes: Negative for injury, sd2 pain, redness, and discharge, Cardiovascular: Negative for edema. Positive for chest pressure and palpitations. Respiratory: Negative for shortness of breath, cough, wheezing. Abdomen/GI: Negative for abdominal pain, nausea, vomiting, diarrhea. MS/Extremity: Negative for injury and deformity, Skin: Negative for injury, rash, and discoloration, Neuro: Negative for headache. Positive for numbness and tingling. Psych: Positive for anxiety. Negative for depression, SI, HI. Hematologic/Lymphatic: Negative for swollen nodes, abnormal bleeding, and unusual bruising. Exam: 11:41 Constitutional: This is a well developed, well nourished patient who is awake, alert, sd2 and in no acute distress. Head/Face: Normocephalic, atraumatic. Eyes: EOMI, normal conjunctiva bilaterally Chest/axilla: Normal chest wall appearance and motion. Nontender with no deformity. Cardiovascular: Regular rate and rhythm with a normal S1 and S2. No gallops, murmurs, or rubs. 2+ distal pulses. Respiratory: Lungs have equal breath sounds bilaterally, clear to auscultation and percussion. No rales, rhonchi or wheezes noted. No increased work of breathing, no retractions or nasal flaring. Abdomen/GI: Soft, non-tender, with normal bowel sounds. No guarding or rebound. No evidence of tenderness throughout. Skin: Warm, dry with normal turgor. Normal color with no rashes, no lesions, and no evidence of cellulitis. MS/ Extremity: Pulses equal, no cyanosis. Neurovascular intact. Full, normal range of motion. Ambulatory without difficulty. Neuro: Awake and alert, GCS 15, oriented to person, place, time, and situation. Cranial nerves II-XII grossly intact. Motor strength 5/5 in all extremities. Sensory grossly intact. Cerebellar exam normal. Normal gait. Psych: Awake, alert, with orientation to person, place and time. Behavior, mood, and affect are within normal limits. 12:14 ECG was reviewed by the Attending Physician. NSR, rate 85, no STEMI criteria, ST sd2 depression noted in V4 Vital Signs: 11:32 BP 148 / 108; Pulse 95; Resp 16; Temp 98.2; Pulse Ox 100% on R/A; vg1 12:29 BP 123 / 95; Pulse 85; Resp 16; Pulse Ox 97% ; bp 13:57 BP 120 / 85; Pulse 79; Resp 16; Pulse Ox 97% ; bp MDM: 11:37 Patient medically screened. sd2 11:41 Differential diagnosis: hypertensive crisis, Malignant HTN, CVA, intracerebral sd2 hemorrhage, anxiety, ACS, electrolyte abnormality among others. Data reviewed: vital signs, nurses notes. 13:29 Data reviewed: lab test result(s), radiologic studies. Counseling: I had a detailed sd2 discussion with the patient and/or guardian regarding: the historical points, exam findings, and any diagnostic results supporting the discharge/admit diagnosis, lab results, radiology results, the need for outpatient follow up, to return to the emergency department if symptoms worsen or persist or if there are any questions or concerns that arise at home. Medical screen evaluation completed. [facility] emergency medical condition absent. ED course: Pt advised of all results and need for follow up with PCP. Due to patient being on a combo medication of lisinopril/HCTZ, will start on supplemental potassium and pt to follow up with PCP next week to discuss changing of medication. BP 123/95 and patient feeling much improved. Trop neg. EKG with no ischemic changes. Imaging with no acute pathology. Pt comfortable with plan for discharge and outpatient follow up. Verbalizes understanding of discharge plan and strict return precautions.. 11/19 11:38 Order name: Basic Metabolic Panel; Complete Time: 12:53 11/19 11:38 Order name: CBC with Diff; Complete Time: 12:53 11/19 11:38 Order name: Magnesium; Complete Time: 12:53 11/19 11:38 Order name: Troponin HS; Complete Time: 12:53 11/19 11:38 Order name: XRAY Chest (1 view); Complete Time: 12:53 11/19 11:38 Order name: CT Head Brain wo Cont; Complete Time: 12:53 11/19 11:38 Order name: EKG; Complete Time: 11:39 11/19 11:38 Order name: Cardiac monitoring; Complete Time: 12:07 11/19 11:38 Order name: EKG - Nurse/Tech; Complete Time: 12:07 11/19 11:38 Order name: IV Saline Lock; Complete Time: 11:51 11/19 11:38 Order name: Labs collected and sent; Complete Time: 11:51 11/19 11:38 Order name: O2 Per Protocol; Complete Time: 11:51 11/19 11:38 Order name: O2 Sat Monitoring; Complete Time: 11:50 sd2 Administered Medications: 11:51 Drug: Aspirin Chewable Tablet 324 mg Route: PO; bp 12:07 Follow up: Response: No adverse reaction bp 13:08 Drug: Potassium Chloride 40 mEq Route: PO; bp 13:39 Follow up: Response: No adverse reaction bp Disposition Summary: 11/19/21 13:32 Discharge Ordered Location: Home sd2 Problem: new sd2 Symptoms: have improved sd2 Condition: Stable sd2 Diagnosis - Hypokalemia sd2 - Essential (primary) hypertension sd2 Followup: sd2 - With: Private Physician - When: 2 - 3 days - Reason: Recheck today's complaints, Continuance of care, Re-evaluation by your physician, Repeat potassium level Followup: sd2 - With: Emergency Department - When: As needed - Reason: Discharge Instructions: - Discharge Summary Sheet sd2 - Hypertension, Adult sd2 - Hypokalemia sd2 Forms: - Medication Reconciliation Form sd2 - Thank You Letter sd2 - Antibiotic Education sd2 - Prescription Opioid Use sd2 Prescriptions: - Potassium Chloride 10 mEq Oral capsule, extended release - take 1 tablet by ORAL route every 12 hours; 14 tablet; Refills: 0, Product sd2 Selection Permitted Signatures: Dispatcher [employer] Leonard Mcclelland RN RN Noreen Campbell RN RN 1 Janis Sandy sd2
[2021-11-19 14:25] VITALS: TEMP 98.2
[2021-11-19 14:29] VITALS: O2SAT 97
[2021-11-19 14:34] VITALS: BP 120/85
--- NOTE | 2021-11-20 06:22 | EKG ---
Test Date: 2021-11-19 Test Time: 12:01:46 Technical Marketing Consultant: BP MEASUREMENT RESULTS: Intervals: Rate: 85 NC: 150 QRSD: 82 QT: 390 QTc: 464 [place]: P: 43 NC: 150 QRS: 19 T: 38 INTERPRETIVE STATEMENTS: Normal sinus rhythm Possible Anterior infarct, age undetermined Abnormal ECG No previous ECG available for comparison Electronically Signed On 11-20-21 06:21:52 CDT by Johny Marroquin
== END 2021-11-19 13:59 | disposition home or self-care (01) ==
LOC: ER 11:21
DX: R07.89 Other chest pain (principal); E87.6 Hypokalemia; I10 Essential (primary) hypertension; E78.00 Pure hypercholesterolemia, unspecified
CPT/HCPCS: 36415; 70450; 71045; 80048; 83735; 84484; 85025; 93005; 99284